=== PATIENT | female | born 2000 | race Caucasian/White ===

== ENCOUNTER 2023-09-10 03:06 | Emergency (ER) | payer OTHER, SELFPAY ==
--- NOTE | 2023-09-10 03:28 | ER ---
Nurse's Notes [facility] Name: Janet Turk Age: 23 yrs Sex: Female : 2000 Arrival Date: 09/10/2023 Time: 03:06 Bed 20 Private MD: Diagnosis: Other infective otitis externa, left ear Presentation: 09/09 03:21 Chief complaint: Patient states: L ear pain and drainage that began 2 days ago. ss Coronavirus screen: Client denies travel out of the [place] in the last 14 days. Ebola Screen: Patient denies exposure to infectious person. Patient denies travel to an Ebola-affected area in the 21 days before illness onset. Initial Sepsis Screen: Does the patient meet any 2 criteria? No. Patient's initial sepsis screen is negative. Does the patient have a suspected source of infection? No. Patient's initial sepsis screen is negative. Risk Assessment: Do you want to hurt yourself or someone else? Patient reports no desire to harm self or others. Onset of symptoms was September 08, 2023. 03:21 Method Of Arrival: Ambulatory ss 03:21 Acuity: WATSON 4 ss Triage Assessment: 03:23 General: Appears uncomfortable, Behavior is calm, cooperative. Pain: Complains of pain ss in left ear Pain currently is 9 out of 10 on a pain scale. Neuro: Level of Consciousness is awake, alert, obeys commands. Respiratory: Respiratory effort is even, unlabored, Respiratory pattern is regular, symmetrical. Derm: Skin is pink, warm \T\ dry. normal. 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 - Infectious Disease History:: Denies. - Social history:: Smoking status: Patient/guardian denies using tobacco, Stopped _ months ago 1. - Family history:: not pertinent. Screenin:05 [facility] ED Fall Risk Assessment (Adult) History of falling in the last 3 months, al5 including since admission No falls in past 3 months (0 pts) Confusion or Disorientation No (0 pts) Intoxicated or Sedated No (0 pts) Impaired Gait No (0 pts) Mobility Assist Device Used No (0 pt) Altered Elimination No (0 pt) Score/Fall Risk Level 0 - 2 = Low Risk Oriented to surroundings, Maintained a safe environment, Hourly rounding (assess needs \T\ fall precautionary measures) done. Abuse screen: Denies threats or abuse. Denies injuries from another. Nutritional screening: No deficits noted. Tuberculosis screening: No symptoms or risk factors identified. Assessment: 04:04 Reassessment:. Pain: Complains of pain in left ear. Neuro: Level of Consciousness is al5 awake, alert, obeys commands, Oriented to person, place, time, situation. Cardiovascular: Patient's skin is warm and dry. Respiratory: Airway is patent Respiratory effort is even, unlabored, Respiratory pattern is regular, symmetrical. GI: No signs and/or symptoms were reported involving the gastrointestinal system. : No signs and/or symptoms were reported regarding the genitourinary system. EENT: Reports L ear pain and drainage. Derm: Skin is intact, Skin is pink, warm \T\ dry. Musculoskeletal: No signs and/or symptoms reported regarding the musculoskeletal system. Vital Signs: 03:21 BP 143 / 89; Pulse 89; Resp 14; Temp 98.2(O); Pulse Ox 100% on R/A; Weight 90.72 kg; ss Height 5 ft. 11 in. ; Pain 9/10; 03:21 Body Mass Index 27.89 (90.72 kg, 180.34 cm) ss 03:21 Pain Scale: Adult ss ED Course: 03:10 Patient arrived in ED. gm2 03:17 Olivia Shay, FILIBERTO is Primary Nurse. al5 03:23 Triage completed. ss 03:23 Arm band placed on right wrist. ss 03:24 Hudson Perry MD is Attending Physician. sp4 03:27 Sandra Rincon MD is Referral Physician. sp4 04:05 Patient has correct armband on for positive identification. Bed in low position. Call al5 light in reach. Side rails up X 1. Provided Education on: processes and procedures. 04:06 No provider procedures requiring assistance completed. Patient did not have IV access al5 during this emergency room visit. 04:12 Test, Urine Sent. al5 Administered Medications: 04:17 Drug: Rocephin (cefTRIAXone) IM 1 grams IM once Route: IM; Site: right gluteus; jj7 04:25 Follow up: Response: No adverse reaction al5 04:17 Drug: Ketorolac IM 60 mg IM once Route: IM; Site: right gluteus; jj7 04:25 Follow up: Response: No adverse reaction al5 04:18 Drug: Acetaminophen-Codeine PO (300 mg-30 mg) 2 tablet PO once; RASS on ADMIN: Combtv4, jj7 Very Agttd3, Agttd2, Rstlss1, AlertClm0, Drwsy-1, Lt Sdtn-2, Mod Sdtn-3, Dp Sdtn-4, UnArsble-5 Route: PO; 04:25 Follow up: Response: No adverse reaction al5 Medication: 04:06 VIS not applicable for this client. al5 Outcome: 03:27 Discharge ordered by MD. gan 04:24 Discharged to home ambulatory, with significant other, al5 04:24 Condition: good 04:24 Discharge instructions given to patient, Instructed on discharge instructions, follow up and referral plans. medication usage, Demonstrated understanding of instructions, follow-up care, medications, Prescriptions given X 4, 04:24 Patient left the ED. al5 Signatures: Quin Herrera RN RN ss Johnson, Juwairiyah, RN RN jj7 Hudson Perry MD MD sp4 Yulisa Hamm [facility] Olivia Shay RN RN al5
--- NOTE | 2023-09-10 03:28 | EDPHYS ---
Physician Documentation [facility] Name: Janet Turk Age: 23 yrs Sex: Female : 2000 Arrival Date: 09/10/2023 Time: 03:06 Bed 20 Private MD: ED Physician Hudson Perry HPI: 09/09 03:25 This 23 yrs old Female presents to ER via Ambulatory with complaints of Ear sp4 Pain, Drainage From Ear. 23:16 23-year-old female presents with pain and swelling in the left ear with drainage from sp4 the left ear canal.. 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 - Infectious Disease History:: Denies. - Social history:: Smoking status: Patient/guardian denies using tobacco, Stopped _ months ago 1. - Family history:: not pertinent. ROS: 23:16 Constitutional: Negative for fever, chills, and weight loss, positive today for left sp4 ear pain and drainage 23:16 All other systems are negative, Exam: 23:16 Constitutional: This is a well developed, well nourished patient who is awake, alert, sp4 and in no acute distress. Head/Face: Normocephalic, atraumatic. Eyes: Pupils equal round and reactive to light, extra-ocular motions intact. Lids and lashes normal. Conjunctiva and sclera are not injected. Cornea within normal limits. Periorbital areas with no swelling, redness, or edema. ENT: Oropharynx with no redness, swelling, or masses, exudates, or evidence of obstruction, uvula midline. Mucous membranes moist. Right ear exam is normal, left ear canal is erythematous, swollen, infected appearing and draining purulent debris. Exam consistent of left otitis externa Neck: Trachea midline, no thyromegaly or masses palpated, and no cervical lymphadenopathy. Supple, full range of motion without nuchal rigidity, or vertebral point tenderness. Chest/axilla: Normal chest wall appearance and motion. Nontender with no deformity. No lesions are appreciated. Cardiovascular: Regular rate and rhythm with a normal S1 and S2. No gallops, murmurs, or rubs. Normal PMI, no JVD. No pulse deficits. Respiratory: Lungs have equal breath sounds bilaterally, clear to auscultation and percussion. No rales, rhonchi or wheezes noted. No increased work of breathing, no retractions or nasal flaring. Abdomen/GI: Soft, with normal bowel sounds. No distension or tympany. No guarding or rebound. No evidence of tenderness throughout. Back: No spinal tenderness. No costovertebral tenderness. Skin: Warm, dry with normal turgor. Normal color with no rashes, no lesions, and no evidence of cellulitis. MS/ Extremity: Pulses equal, no cyanosis. Neurovascular intact. Full, normal range of motion. Neuro: Awake and alert, GCS 15, oriented to person, place, time, and situation. Cranial nerves II-XII grossly intact. Motor strength 5/5 in all extremities. Sensory grossly intact. Vital Signs: 03:21 BP 143 / 89; Pulse 89; Resp 14; Temp 98.2(O); Pulse Ox 100% on R/A; Weight 90.72 kg; ss Height 5 ft. 11 in. ; Pain 9/10; 03:21 Body Mass Index 27.89 (90.72 kg, 180.34 cm) ss 03:21 Pain Scale: Adult ss MDM: 03:27 Patient medically screened. sp4 23:16 Differential diagnosis: otitis media, otitis externa, ruptured TM, foreign body. Data sp4 reviewed: vital signs, nurses notes. ED course: Consistent with left otitis externa. Will cover with cephalexin and Ciprodex.. 09/09 03:25 Order name: Test, Urine sp4 Administered Medications: 04:17 Drug: Rocephin (cefTRIAXone) IM 1 grams IM once Route: IM; Site: right gluteus; jj7 04:25 Follow up: Response: No adverse reaction al5 04:17 Drug: Ketorolac IM 60 mg IM once Route: IM; Site: right gluteus; jj7 04:25 Follow up: Response: No adverse reaction al5 04:18 Drug: Acetaminophen-Codeine PO (300 mg-30 mg) 2 tablet PO once; RASS on ADMIN: matthias Anglinj7 Very Agttd3, Agttd2, Rstlss1, AlertClm0, Drwsy-1, Lt Sdtn-2, Mod Sdtn-3, Dp Sdtn-4, UnArsble-5 Route: PO; 04:25 Follow up: Response: No adverse reaction al5 Disposition Summary: 09/10/23 03:27 Discharge Ordered Notes: Location: Home sp4 Problem: new sp4 Symptoms: have improved sp4 Condition: Stable sp4 Diagnosis - Other infective otitis externa, left ear sp4 Followup: sp4 - With: Sandra Rincon MD - When: 7 - 10 days - Reason: Recheck today's complaints Discharge Instructions: - Discharge Summary Sheet sp4 - Otitis Externa, [id number] sp4 Forms: - Patient Portal Instructions sp4 Prescriptions: - Cephalexin 500 mg Oral Capsule - take 1 capsule ORAL route every 8 hours for 10 days; 30 capsule; Refills: 0, sp4 Product Selection Permitted - Ibuprofen 800 mg Oral Tablet - take 1 tablet ORAL route every 8 hours As needed take with food; 30 tablet; sp4 Refills: 0, Product Selection Permitted - Tramadol 50 mg Oral Tablet - take 1 tablet ORAL route every 8 hours as needed; 12 tablet; Refills: 0, sp4 Product Selection Permitted - Ciprodex 0.3-0.1 % Otic drops, suspension - instill 4 drops OTIC route every 12 hours for 7 days Left ear only; 7 sp4 milliliter; Refills: 0, Product Selection Permitted Signatures: Dispatcher [employer] Quin Tucker RN RN ss Johnson, Juwairiyah, RN RN jj7 Hudson Perry MD MD sp4 Olivia Shay RN al5
[2023-09-10] MEDS ORDERED: CODEINE 30MG/APAP 300MG TAB ONE (04:06)
[2023-09-10] MEDS ORDERED: CEFTRIAXONE 1000 MG/VIAL ONE (04:06)
[2023-09-10] MEDS ORDERED: KETOROLAC 30 MG/ML INJ ONE (04:06)
[2023-09-10] MEDS ORDERED: LIDOCAINE 1% MPF 5 ML VIAL ONE (04:07)
[2023-09-10 04:20] LABS: Specific Gravity 1.028 (1.005-1.030)
[2023-09-10 09:18] VITALS: BP 143/89; TEMP 98.2; O2SAT 100
== END 2023-09-10 04:24 | disposition home or self-care (01) ==
LOC: ER 03:06
DX: H60.392 Other infective otitis externa, left ear (principal)
CPT/HCPCS: 81025; 96372; 99284; J0696; J2001

== ENCOUNTER 2024-02-22 21:02 | Emergency (ER) | payer OTHER, SELFPAY ==
--- NOTE | 2024-02-22 22:21 | RAD REPORT ---
EXAM: Chest Single View HISTORY: SOB COMPARISON: None. FINDINGS: LUNGS/PLEURA: The lungs are clear. No pleural effusions or pneumothorax. No pulmonary edema. MEDIASTINUM: The mediastinal silhouette is within normal limits. CARDIAC: The cardiac silhouette is within normal limits. UPPER ABDOMEN: No significant abnormality. BONES: No acute abnormality. LINES/TUBES/OTHER: N/A IMPRESSION: No evidence of acute cardiopulmonary disease.
[2024-02-22] MEDS ORDERED: NA CHLORIDE 0.9% 1,000 ML ONE (23:54)
[2024-02-23 00:07] LABS: Absolute Lymphocytes (CBC) 0.5 K/uL (0.7-4.9); Absolute Monocytes 0.4 K/uL (0.1-1.3); Basophils % 0.2 % (0-1.3); Eosinophils % 1.1 % (0-4.4); Hematocrit 42.8 % (36.0-45.0); Hemoglobin 14.7 g/dL (12.0-15.0); Lymphocytes % 12.5 % (15.3-44.8); MCHC 34.3 g/dL (32.0-36.0); MCV 90.4 fL (80-100); MPV 10.8 fL (7.6-11.3); Monocytes % 10.6 % (3.3-12.3); Neutrophils % 75.6 % (41.7-73.7); Nucleated Red Blood Cells % 0.1 % (0-0); Platelets 151 thou/uL (152-406); RBC Red Blood Cell Count 4.73 M/uL (3.86-4.86); Red Cell Distribution Width 13.1 % (12.1-15.2)
[2024-02-23 00:17] LABS: D-Dimer 0.299 FEUug/mL (0-0.500); PT Prothrombin Time 12.6 SECONDS (9.4-12.5); Protime INR 1.2
[2024-02-23 00:28] LABS: ALT/SGPT 35 U/L (13-56); AST/SGOT 19 U/L (15-37); Albumin 3.7 g/dL (3.4-5.0); Alkaline Phosphatase 81 U/L (45-117); Anion Gap 10.6 mEq/L (5.0-15.0); BUN Blood Urea Nitrogen 13 mg/dL (7-18); Bicarbonate 24 mEq/L (21-32); Bilirubin Total 0.4 mg/dL (0.2-1.0); Globulin 3.8 g/dL (2.3-3.5); Glomerular Filtration Rate 94 ml/min (=/>90); Glucose Level 102 mg/dL (74-106); NT PRO-BNP 15 pg/mL (<125); Potassium 3.6 mEq/L (3.5-5.1); Protein, Total 7.5 g/dL (6.4-8.2); Sodium Level 135 mEq/L (136-145)
[2024-02-23 00:30] LABS: SARS-CoV-2 Antigen CONTROL BLUE LINE VIS/BG OK; SARS-CoV-2 Antigen Rapid Res Negative (Negative)
[2024-02-23] MEDS ORDERED: METHYLPREDNISOLONE 125 MG INJ ONE (00:32)
[2024-02-23 00:39] LABS: Bilirubin Direct < 0.2 mg/dL (0-0.2); Bilirubin Indirect, Calculated 0.2 mg/dL (0.2-0.8); Troponin High Sensitivity < 3.0 pg/mL (<58.9)
--- NOTE | 2024-02-23 01:00 | EDPHYS ---
Physician Documentation [facility] Name: Janet Turk Age: 23 yrs Sex: Female : 2000 Arrival Date: 02/22/2024 Time: 21:02 Bed 20 Private MD: ED Physician Hudson Perry HPI: 02/21 21:35 This 23 yrs old Female presents to ER via Ambulatory with complaints of Asthma cp Exacerbation. 21:35 The patient has shortness of breath at rest. cp 21:35 Onset: The symptoms/episode began/occurred last week. Duration: The symptoms are cp continuous, and are steadily getting worse. Associated signs and symptoms: Pertinent positives: non-productive cough, sore throat, chest tightness, Pertinent negatives: fever, hemoptysis, abdominal pain. Severity of symptoms: in the emergency department the symptoms are unchanged despite home interventions. 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 - Infectious Disease History:: Denies. - Social history:: Smoking status: Reported history of juuling and/or vaping. ROS: 21:40 Constitutional: Negative for fever, poor PO intake, cp 21:40 Eyes: Negative for injury, pain, redness, and discharge, cp 21:40 ENT: Positive for sore throat, 21:40 Cardiovascular: Positive for chest tightness, 21:40 Respiratory: Positive for cough, shortness of breath, 21:40 Abdomen/GI: Negative for abdominal pain, vomiting, diarrhea, constipation, 21:40 Neuro: Negative for altered mental status, cp 21:40 All other systems are negative, Exam: 21:45 Constitutional: The patient appears in no acute distress, alert, awake, cp non-diaphoretic, non-toxic, well developed, well nourished, 21:45 Head/Face: Normocephalic, atraumatic. cp 21:45 Eyes: Periorbital structures: appear normal, Conjunctiva: normal, no exudate, no injection, Sclera: no appreciated abnormality, Lids and lashes: appear normal, bilaterally, 21:45 ENT: External ear(s): are unremarkable, Nose: is normal, Mouth: Lips: moist, Oral mucosa: pink and intact, moist, Posterior pharynx: Airway: no evidence of obstruction, patent, 21:45 Neck: ROM/movement: is normal, is supple, without pain, no range of motions limitations, no meningismus, 21:45 Chest/axilla: Inspection: normal, Palpation: crepitus, is not appreciated, tenderness, is not appreciated, 21:45 Cardiovascular: Rate: tachycardic, Rhythm: regular, Edema: is not appreciated, JVD: is not appreciated, 21:45 Respiratory: the patient does not display signs of respiratory distress, Respirations: shallow respirations, that is mild, Breath sounds: decreased breath sounds, are not appreciated, stridor, is not appreciated, wheezing: is not appreciated, 21:45 Abdomen/GI: Inspection: abdomen appears normal, Palpation: abdomen is soft and non-tender, in all quadrants, 02/22 00:26 ECG was reviewed by the Attending Physician. Vital Signs: 02/21 21:33 BP 130 / 102; Pulse 140; Resp 20; Temp 99.1; Pulse Ox 97% ; Weight 100.7 kg; Height 5 vc1 ft. 11 in. ; 23:52 BP 136 / 88; Pulse 111; Resp 20; Pulse Ox 100% ; vc1 02/22 00:15 BP 125 / 89; Pulse 110; Resp 20; Pulse Ox 100% on R/A; ay 01:00 BP 121 / 75; Pulse 105; Resp 20; Pulse Ox 99% on R/A; ay 01:30 BP 122 / 67; Pulse 107; Resp 18; Pulse Ox 98% on R/A; ay 02/21 21:33 Body Mass Index 30.96 (100.70 kg, 180.34 cm) vc1 MDM: 02/21 21:31 Medical Screening Exam initiated cp 02/22 00:00 Differential diagnosis: asthma, Bronchitis pneumonia, Pneumothorax pulmonary edema, cp Pulmonary Embolism. 01:00 Data reviewed: vital signs, nurses notes, lab test result(s), EKG, radiologic studies, cp plain films, and as a result, I will discharge patient. :00 I considered the following discharge prescriptions or medication management in the emergency department Medications were administered in the Emergency Department. See MAR. 01:00 Test considered but Not performed: CT: chest. Care significantly affected by the cp following chronic conditions: Asthma. Counseling: I had a detailed discussion with the patient and/or guardian regarding the historical points, exam findings, and any diagnostic results supporting the discharge/admit diagnosis, lab results, radiology results, to return to the emergency department if symptoms worsen or persist or if there are any questions or concerns that arise at home. Response to treatment: the patient's symptoms have markedly improved after treatment, and as a result, I will discharge patient. 02/21 21:45 Order name: Basic Metabolic Panel; Complete Time: 00:52 cp 02/22 00:52 Interpretation: Normal except: NA 135. 02/21 21:45 Order name: CBC with Diff; Complete Time: 00:26 cp 02/22 00:26 Interpretation: Normal except: WBC 4.00; PLT 151; CARTER% 75.6; LYM% 12.5; LYMA 0.5. 02/21 21:45 Order name: D-Dimer; Complete Time: 00:26 cp 02/21 21:45 Order name: LFT's; Complete Time: 00:52 cp 02/22 00:52 Interpretation: Normal except: GLOB 3.8; A/G 1.0. 02/21 21:45 Order name: Magnesium; Complete Time: 00:52 cp 02/21 21:45 Order name: NT PRO-BNP; Complete Time: 00:52 cp 02/21 21:45 Order name: PT-INR; Complete Time: 00:26 cp 02/21 21:45 Order name: Troponin HS; Complete Time: 00:52 cp 02/22 00:53 Interpretation: Reviewed. 02/21 23:17 Order name: Influenza Screen (a \T\ B); Complete Time: 00:52 cp 02/22 00:53 Interpretation: Reviewed. 02/21 23:17 Order name: RSV; Complete Time: 00:52 cp 02/21 23:17 Order name: Strep; Complete Time: 00:52 cp 02/21 23:17 Order name: SARS RAPID; Complete Time: 00:52 cp 02/22 00:32 Order name: Throat Culture EDNJ 02/21 21:45 Order name: XRAY Chest (1 view); Complete Time: 23:16 02/22 00:53 Interpretation: Report review. 02/21 21:45 Order name: EKG; Complete Time: 21:46 02/21 21:45 Order name: Cardiac monitoring; Complete Time: 00:03 02/21 21:45 Order name: EKG - Nurse/Tech; Complete Time: 00:27 02/21 21:45 Order name: IV Saline Lock; Complete Time: 23:52 02/21 21:45 Order name: Labs collected and sent; Complete Time: 23:52 cp 02/21 21:45 Order name: O2 Per Protocol; Complete Time: 23:44 02/21 21:45 Order name: O2 Sat Monitoring; Complete Time: :44 cp EC:26 Rate is 97 beats/min. Rhythm is regular. OR interval is normal. QRS interval is cp prolonged at 110 msec. QT interval is normal. T waves are Inverted in lead aVR. Interpreted by me. Reviewed by me. Administered Medications: 00:14 Drug: NS 0.9% IV 1000 ml IV at 1 bolus Per protocol; to be given as a bolus over 60 vc1 minutes Route: IV; Rate: 1 bolus; Site: left antecubital; 01:00 Follow up: Response: No adverse reaction; IV Status: Completed infusion; IV Intake: ay 1000ml 00:38 Drug: MethylPrednisoLONE IVP 125 mg IVP once Route: IVP; Site: left antecubital; ay 01:40 Follow up: Response: No adverse reaction ay Disposition: 22:39 Co-signature as Attending Physician, Hudson Perry MD I agree with the assessment sp4 and plan of care. I reviewed the patient's care provided by the Advanced Practice Provider and agree with the diagnosis and treatment plan. Disposition Summary: 02/23/24 01:00 Discharge Ordered Notes: Location: Home cp Problem: new cp Symptoms: have improved cp Condition: Stable cp Diagnosis - Influenza due to identified novel influenza A virus with other respiratory cp manifestations - Unspecified asthma with (acute) exacerbation cp Followup: cp - With: Private Physician - When: 2 - 3 days - Reason: Worsening of condition Discharge Instructions: - Discharge Summary Sheet cp - Asthma, Adult cp - Influenza, Adult cp Forms: - Medication Reconciliation Form cp - Antibiotic Education cp - Prescription Opioid Use cp - Patient Portal Instructions cp - Leadership Thank You Letter cp Prescriptions: - Bromfed DM 2-30-10 mg/5 mL Oral syrup - administer 10 milliliter ORAL route every 6 hours as needed for cold symptoms; cp 240 milliliter; Refills: 0, Product Selection Permitted - albuterol sulfate 90 mcg/actuation Inhalation HFA Aerosol Inhaler - inhale 1 puff INHALATION route every 4 to 6 hours as needed for bronchospasm; cp administer via ventilator; 1 unit; Refills: 0, Product Selection Permitted - Albuterol Sulfate 2.5 mg /3 mL (0.083 %) Inhalation Solution for Nebulization - inhale 1 unit NEBULIZATION route every 8 hours As needed; 1 unit; Refills: 0, cp Product Selection Permitted - Zithromax Z-Geovany 250 mg Oral Tablet - take 1 tablet ORAL route as directed for 5 days Day 1 - take two (2) tablets cp one time. Day 2, 3, 4 , 5 take one (1) tablet once daily.; 6 tablet; Refills: 0, Product Selection Permitted - Medrol (Geovany) 4 mg Oral Tablets, Dose Pack - take 1 tablet ORAL route as directed - follow package instructions; 1 packet; cp Refills: 0, Product Selection Permitted Signatures: Dispatcher [employer] EDMS Dameon English PA PA cp Calcote, Vanessa, RN RN vc1 Hudson Perry MD MD sp4 Jazmin King RN RN ay Corrections: (The following items were deleted from the chart) 02/21 21:46 21:46 BASIC METABOLIC PANEL+C.LAB.BRZ ordered. EDMS EDMS 21:46 21:46 CBC+H.LAB.BRZ ordered. EDMS EDMS 21:46 21:46 D-DIMER+COAG.LAB.BRZ ordered. EDMS EDMS 21:46 21:46 HEPATIC FUNCTION+C.LAB.BRZ ordered. EDMS EDMS 21:46 21:46 MAGNESIUM+C.LAB.BRZ ordered. EDMS EDMS 21:46 21:46 PROBNP+C.LAB.BRZ ordered. EDMS EDMS 21:46 21:46 PROTIME (+INR)+COAG.LAB.BRZ ordered. EDMS EDMS 21:46 21:46 Troponin High Sensitivity+C.LAB.BRZ ordered. EDMS EDMS
--- NOTE | 2024-02-23 01:00 | ER ---
Nurse's Notes [facility] Name: Janet Turk Age: 23 yrs Sex: Female : 2000 Arrival Date: 02/22/2024 Time: 21:02 Bed 20 Private MD: Diagnosis: Influenza due to identified novel influenza A virus with other respiratory manifestations;Unspecified asthma with (acute) exacerbation Presentation: 02/21 21:33 Chief complaint: Patient states: asthma attacks since Tuesday, No inhaler. vc1 21:33 Coronavirus screen: Client denies travel out of the [place] in the last 14 days. At this vc1 time, the client does not indicate any symptoms associated with coronavirus-19. Ebola Screen: Patient negative for fever greater than or equal to 101.5 degrees Fahrenheit, and additional compatible Ebola Virus Disease symptoms Patient denies exposure to infectious person. Patient denies travel to an Ebola-affected area in the 21 days before illness onset. No symptoms or risks identified at this time. Initial Sepsis Screen: Does the patient meet any 2 criteria? No. Patient's initial sepsis screen is negative. Does the patient have a suspected source of infection? No. Patient's initial sepsis screen is negative. Risk Assessment: Do you want to hurt yourself or someone else? Patient reports no desire to harm self or others. Onset of symptoms was February 22, 2024. 21:33 Method Of Arrival: Ambulatory vc1 21:33 Acuity: WATSON 3 vc1 Triage Assessment: 21:30 General: Appears in no apparent distress. uncomfortable, ill, obese, well groomed, well vc1 developed, well nourished, Behavior is calm, cooperative, appropriate for age. Pain: Complains of pain in throat Pain does not radiate. Pain currently is 3 out of 10 on a pain scale. Quality of pain is described as burning, Pain began suddenly. EENT: Reports pain when swallowing Pain is 3 out of 10 on a pain scale. Neuro: Level of Consciousness is awake, alert, obeys commands, Oriented to person, place, time, situation, Appropriate for age. Cardiovascular: Heart tones S1 S2 present Capillary refill < 3 seconds Patient's skin is warm and dry. Respiratory: Reports shortness of breath at rest Airway is patent Respiratory effort is even, unlabored, Respiratory pattern is regular, symmetrical. GI: Abdomen is round non-distended. : No deficits noted. No signs and/or symptoms were reported regarding the genitourinary system. Derm: Skin is intact, is healthy with good turgor, Skin is dry, Skin is normal, Skin temperature is warm. Musculoskeletal: Circulation, motion, and sensation intact. Range of motion: intact in all extremities. ECHO TECH: 21:36 LMP N/A - Irregular menses, Not vc1 Historical: - Allergies: 21:35 PENICILLINS; vc1 - Home Meds: 21:35 None [Active]; vc1 - PMHx: 21:35 Asthma; vc1 - PSHx: 21:35 ectopic ; right fallopian tube removed; vc1 - Immunization history:: Client reports receiving the 2nd dose of the Covid vaccine, Flu vaccine is not up to date. - Infectious Disease History:: Denies. - Social history:: Smoking status: Reported history of juuling and/or vaping. Screenin:36 Abuse screen: Denies threats or abuse. Nutritional screening: No deficits noted. vc1 Tuberculosis screening: No symptoms or risk factors identified. 21:36 [facility] ED Fall Risk Assessment (Adult) History of falling in the last 3 months, vc1 including since admission No falls in past 3 months (0 pts) Confusion or Disorientation No (0 pts) Intoxicated or Sedated No (0 pts) Impaired Gait No (0 pts) Mobility Assist Device Used No (0 pt) Altered Elimination No (0 pt) Score/Fall Risk Level 0 - 2 = Low Risk Oriented to surroundings, Maintained a safe environment, Educated pt \T\ family on fall prevention, incl call for assistance when getting out of bed. Assessment: 02/22 00:00 General: Appears in no apparent distress. uncomfortable, Behavior is calm, cooperative. ay Pain: Complains of pain in chest. 00:00 Respiratory: Airway is patent Respiratory effort is even, unlabored, Respiratory ay pattern is regular, symmetrical. GI: Abdomen is round. : No signs and/or symptoms were reported regarding the genitourinary system. EENT: No signs and/or symptoms were reported regarding the EENT system. Derm: No signs and/or symptoms reported regarding the dermatologic system. Vital Signs: 02/21 21:33 BP 130 / 102; Pulse 140; Resp 20; Temp 99.1; Pulse Ox 97% ; Weight 100.7 kg; Height 5 vc1 ft. 11 in. ; 23:52 BP 136 / 88; Pulse 111; Resp 20; Pulse Ox 100% ; vc1 02/22 00:15 BP 125 / 89; Pulse 110; Resp 20; Pulse Ox 100% on R/A; ay 01:00 BP 121 / 75; Pulse 105; Resp 20; Pulse Ox 99% on R/A; ay 01:30 BP 122 / 67; Pulse 107; Resp 18; Pulse Ox 98% on R/A; ay 02/21 21:33 Body Mass Index 30.96 (100.70 kg, 180.34 cm) vc1 ED Course: 02/21 21:05 Patient arrived in ED. [email or web address] 21:08 Dameon English PA is PHCP. cp 21:08 Hudson Perry MD is Attending Physician. cp 21:35 Triage completed. vc1 21:36 Arm band placed on right wrist. vc1 22:07 XRAY Chest (1 view) In Process Unspecified. EDMS 23:16 Patient has correct armband on for positive identification. Bed in low position. Call vc1 light in reach. Pulse ox on. NIBP on. 23:44 Provided Education on: call light. vc1 23:52 SARS RAPID Sent. vk 23:52 Strep Sent. vk 23:52 RSV Sent. vk 23:52 Influenza Screen (a \T\ B) Sent. vk 23:52 Basic Metabolic Panel Sent. vk 23:52 CBC with Diff Sent. vk 23:52 D-Dimer Sent. vk 23:52 LFT's Sent. vk 23:52 Magnesium Sent. vk 23:52 NT PRO-BNP Sent. vk 23:52 PT-INR Sent. vk 23:53 Troponin HS Sent. vk 23:54 COVID swab sent to lab. Flu and/or RSV swab sent to lab. Strep swab sent to lab. vk Inserted saline lock: 20 gauge in left antecubital area, using aseptic technique. Blood collected. Flushed with 10 mL NS. 02/22 00:27 SARS RAPID Sent. vk 00:27 Strep Sent. vk 00:27 RSV Sent. vk 00:27 Influenza Screen (a \T\ B) Sent. vk 00:30 Jazmin King, RN is Primary Nurse. ay 01:40 IV discontinued, intact, bleeding controlled, No redness/swelling at site. Pressure ay dressing applied. Administered Medications: 00:14 Drug: NS 0.9% IV 1000 ml IV at 1 bolus Per protocol; to be given as a bolus over 60 vc1 minutes Route: IV; Rate: 1 bolus; Site: left antecubital; 01:00 Follow up: Response: No adverse reaction; IV Status: Completed infusion; IV Intake: ay 1000ml 00:38 Drug: MethylPrednisoLONE IVP 125 mg IVP once Route: IVP; Site: left antecubital; ay 01:40 Follow up: Response: No adverse reaction ay Medication: 02/21 21:37 VIS not applicable for this client. vc1 Intake: 02/22 01:00 IV: 1000ml; Total: 1000ml. ay Outcome: 01:00 Discharge ordered by MD. cp 01:44 Discharged to home ambulatory, ay 01:44 Condition: stable 01:44 Discharge instructions given to patient, Instructed on discharge instructions, follow up and referral plans. Demonstrated understanding of instructions, follow-up care, medications, Prescriptions given X 5 02:32 Patient left the ED. ay Signatures: Dispatcher [employer] EDMS Dameon English PA PA cp Jeffries, Jennifer [email or web address] Nickie Bermudez RN RN vc1 Bette De La Garza Awudu, RN RN ay Corrections: (The following items were deleted from the chart) 02/21 21:35 21:33 Chief complaint: Patient states: asthma attacks since Tuesday, vc1 vc1
--- NOTE | 2024-02-23 11:43 | EKG ---
Test Date: 2024-02-23 Test Time: 00:19:35 [employer] Tr[employer] Mechanic: INESSA MEASUREMENT RESULTS: Intervals: Rate: 97 WI: 144 QRSD: 110 QT: 346 QTc: 439 Greer: P: 43 WI: 144 QRS: 15 T: 23 INTERPRETIVE STATEMENTS: Normal sinus rhythm Normal ECG No previous ECG available for comparison Electronically Signed On 02-23-24 11:42:36 BAKER by Cabrera Baltazar
[2024-02-24 02:38] VITALS: BP 136/88; TEMP 99.1; O2SAT 100
== END 2024-02-23 02:32 | disposition home or self-care (01) ==
LOC: ER 21:02
DX: J10.1 Influenza due to other identified influenza virus with other respiratory manifestations (principal); J45.901 Unspecified asthma with (acute) exacerbation; Z11.52 Encounter for screening for COVID-19
CPT/HCPCS: 96361; 93005; 87070; 85025; 80048; 36415; 83735; 85610; 85379; 80076; 87081; 84484; 83880; 87807; 87804 ×2; 71045; 96374; 99284; 87811; J2919; J7030